=== PATIENT | male | born 1965 | race American Indian/Alaskan Native ===

== ENCOUNTER 2020-10-21 04:13 | Emergency (ER) | payer SELFPAY ==
[2020-10-21] MEDS ORDERED: ROCURONIUM 50 MG/5 ML INJ IV ONE ×3 (04:17→04:35)
[2020-10-21] MEDS ORDERED: ETOMIDATE 20 MG/10 ML INJ IV ONE ×2 (04:17→04:35)
[2020-10-21] MEDS ORDERED: SODIUM CHLORIDE 0.9% 1000 ML 1,000 ML IV ONE ×2 (04:30→04:33)
[2020-10-21] MEDS ORDERED: DIPHtheria,PERTUSSIS(ACELL),TETANUS VACCINE/PF 0.5 ML VIAL IM ONE (04:34)
[2020-10-21] MEDS ORDERED: ceFAZolin/NS 1 GM/50 ML 1 GM/50 ML BAG IV ONE (04:34)
[2020-10-21] MEDS ORDERED: LIP THERAPY VASELINE TP PRN (04:34)
[2020-10-21] MEDS ORDERED: fentaNYL 100 MCG/2 ML INJ IV PRN (04:34)
[2020-10-21] MEDS ORDERED: MINERAL OIL/PETROLATUM, WHITE OPHTH OINT 3.5 GM OU PRN (04:34)
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
[2020-10-21] MEDS ORDERED: SODIUM CHLORIDE 0.9% 500 ML 500 ML IV ONE (04:43)
[2020-10-21] MEDS ORDERED: fentaNYL DRIP Premix 2,000 MCG/100 ML BAG IV SCH (05:00)
[2020-10-21 05:06] LABS: Basophils % (Auto) 0.2 % (0.0-1.8); Eosinophils # (Auto) 0.1 K/mm3 (0.0-0.4); Eosinophils % (Auto) 1.7 % (0.0-4.3); Hematocrit 24.5 % (35.5-45.6); Lymphocytes # (Auto) 2.9 K/mm3 (1.2-5.4); Lymphocytes % (Auto) 36.1 % (13.4-35.0); Mean Corpuscular HGB Conc 33 % (32-34); Mean Corpuscular Volume 95 fl (84-94); Monocytes # (Auto) 0.7 K/mm3 (0.0-0.8); Platelet Count 149 K/mm3 (140-440); Red Blood Count 2.57 M/mm3 (3.65-5.03); Red Cell Distribution Width 14.9 % (13.2-15.2)
[2020-10-21] MEDS ORDERED: LACTATED RINGERS 1,000 ML IV ONE (05:07)
[2020-10-21 05:21] LABS: Alanine Aminotransferase 8 units/L (7-56); Albumin 2.7 g/dL (3.9-5); BUN/Creatinine Ratio 13; Blood Urea Nitrogen 17 mg/dL (9-20); Calcium 7.8 mg/dL (8.4-10.2); Hemolysis Index 15
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
--- NOTE | 2020-10-21 05:23 | XRay Report ---
AP PELVIS INDICATION / CLINICAL INFORMATION: Trauma COMPARISON: None available. FINDINGS: BONES / JOINT(S): The hip and SI joint spaces are well-maintained. No significant arthritis. There is no evidence of fracture or dislocation. SOFT TISSUES: No significant abnormality. ADDITIONAL FINDINGS: None. Signer Name: Jomar Medrano MD Signed: 10/21/2020 5:19 AM Workstation Name: [id number]
[2020-10-21] MEDS ORDERED: CALCIUM CHLORIDE 1,000 MG in SODIUM CHLORIDE 0.9% 100 ML IV ONE (05:24)
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
[2020-10-21 05:25] LABS: INR 1.32 (0.87-1.13)
[2020-10-21 05:26] LABS: Partial Thromboplastin Time 30.9 Sec. (24.2-36.6)
[2020-10-21] MEDS ORDERED: TRANEXAMIC ACID 1,000 MG in SODIUM CHLORIDE 0.9% 100 ML IV NR ×2 (05:27→06:00)
[2020-10-21] MEDS ORDERED: POTASSIUM CHLORIDE 20 MEQ 20 MEQ/100 ML BAG IV SCH (06:00)
[2020-10-21 06:52] VITALS: BP 107/67
== END 2020-10-21 05:30 | disposition short-term general hospital (02) ==
LOC: ED 04:13
DX: S81.832A Puncture wound without foreign body, left lower leg, initial encounter (principal); R57.8 Other shock; R41.82 Altered mental status, unspecified; E87.6 Hypokalemia; E83.51 Hypocalcemia; X58.XXXA Exposure to other specified factors, initial encounter; Y93.89 Activity, other specified; Y92.89 Other specified places as the place of occurrence of the external cause; Y99.8 Other external cause status
CPT/HCPCS: 31500; 36415; 36569; 71045; 72170; 73590; 80053; 82550; 85025; 85610; 85730; 86850; 86900; 86901; 86920; 90471; 90715; 96361; 96365; 96366; 96368; 96375; 99285; J0690; J3010; J7120; 80320; 94002; G0480; J3480